=== PATIENT | male | born 1955 | race African-American/Black ===

== ENCOUNTER 2020-11-11 20:37 | Inpatient (IN) | payer OTHER ==
[2020-11-11 20:59] VITALS: BMI 42.0
[2020-11-11] MEDS ORDERED: ACETAMINOPHEN 1000 MG/100 ML VIAL IVPB ONE (21:38)
[2020-11-11] MEDS ORDERED: ACETAMINOPHEN INJECTION 100 ML IVPB ONE (21:40)
[2020-11-11] MEDS ORDERED: VANCOMYCIN/WATER 1,250 MG/250 ML BAG IVPB ONE (21:59)
[2020-11-11] MEDS ORDERED: CEFTRIAXONE 2,000 MG in DEXTROSE 5%-WATER - 50 ML IVPB ONE (21:59)
[2020-11-11] MEDS ORDERED: CEFTRIAXONE 2 GM/100 ML BAG IVPB ONE (22:16)
[2020-11-11 22:29] LABS: HEMATOCRIT 37.4 % (35.4-49); HEMOGLOBIN 12.6 GM/dL (11.7-16.9); MCHC 33.7 g/dl (32.0-35.9); MEAN CELL VOLUME 86.1 fl (80-96); MEAN PLT VOLUME 10.3 fl (7.5-11.1); PLATELET COUNT 184 10^3/uL (134-434); RBC 4.34 M/mm3 (4.00-5.60); RDW 13.5 % (11.9-15.9)
[2020-11-11 22:32] LABS: VENOUS BASE EXCESS 4.3 mmol/L (-2-2); VENOUS O2 SATURATION 49.6 % (70-80); VENOUS PCO2 43.6 mmHg (38-52); VENOUS PH 7.441 (7.310-7.410)
[2020-11-11 22:35] LABS: INR 1.39 (0.83-1.09); PROTHROMBIN TIME (PATIENT) 17.1 SEC (9.7-13.0)
[2020-11-11 22:36] LABS: LACTIC ACID 2.2 mmol/L (0.4-2.0)
[2020-11-11 22:37] LABS: ACTIVATED PTT 29.8 SECONDS (25.2-36.5)
[2020-11-11 22:45] LABS: CHLORIDE 90 mmol/L (98-107); SODIUM 129 mmol/L (136-145)
[2020-11-11 22:47] LABS: CALCIUM 8.2 mg/dL (8.5-10.1)
[2020-11-11 22:48] LABS: ALBUMIN 2.9 g/dl (3.4-5.0); ANION GAP 12 MMOL/L (8-16); BLOOD UREA NITROGEN 9.9 mg/dL (7-18); CO2 27 mmol/L (21-32); GLUCOSE,RANDOM 241 mg/dL (74-106)
[2020-11-11 22:51] LABS: CREATININE 1.5 mg/dL (0.55-1.3); SGOT/AST 50 U/L (15-37); SGPT/ALT 35 U/L (13-61)
[2020-11-11 22:52] LABS: BILIRUBIN,TOTAL 0.7 mg/dL (0.2-1)
[2020-11-11 22:53] LABS: TOT PROT 6.7 g/dl (6.4-8.2)
[2020-11-11 22:54] LABS: ALK PHOS 79 U/L (45-117)
[2020-11-11] MEDS ORDERED: LACTATED RINGERS SOLUTION 1000 ML INFUS.BAG IV ONE (23:01)
[2020-11-11 23:25] LABS: MAGNESIUM 1.7 mg/dL (1.8-2.4)
[2020-11-11 23:33] LABS: ANISOCYTOSIS 0; MACROCYTOSIS 0; PLATELET ESTIMATE NORMAL
[2020-11-12] MEDS ORDERED: POTASSIUM CHLORIDE TABS 20 MEQ TABLET.ER (FP) PO ONE ×2 (00:31→00:37)
[2020-11-12] MEDS: KCL 10 MEQ IVPB 10 MEQ/100 ML INFUS.BAG IVPB SCH ×2 (01:25→02:36)
[2020-11-12 02:06] LABS: EPI CELLS 2 /uL (0-25.1); HYALINE CASTS 0 /uL (0-3.1); PH,URINE 6.5 (5.0-8.0); URINE APPEARANCE CLEAR; URINE BACTERIA 1 /uL (0-1359); URINE BILIRUBIN NEGATIVE (NEGATIVE); URINE COLOR YELLOW; URINE GLUCOSE (UA) NEGATIVE (NEGATIVE); URINE KETONE NEGATIVE (NEGATIVE); URINE LEUK ESTERASE NEGATIVE (NEGATIVE); URINE NITRITE NEGATIVE (NEGATIVE); URINE PROTEIN 1+ (NEGATIVE); URINE RBC 11 /uL (0-23.9); URINE WBC 2 /uL (0-25.8)
[2020-11-12] MEDS ORDERED: MAGNESIUM SULF 50% (8.12 MEQ/2 ML-1 GM VIAL) IVPB ONE (03:25)
[2020-11-12] MEDS ORDERED: ALBUTEROL SO4 0.083% IH SOL 2.5 MG/3 ML VIAL.NEB. NEB PRN (03:26)
[2020-11-12] MEDS ORDERED: MAGNESIUM 1GM/D5W - 1 GM/100 ML IVPB IVPB ONE (03:35)
[2020-11-12] MEDS ORDERED: HEPARIN NA (PORCINE) 5,000 UNITS/ML 1ML VIAL SQ SCH (06:00)
[2020-11-12 06:14] LABS: HEMATOCRIT 37.1 % (35.4-49); HEMOGLOBIN 12.7 GM/dL (11.7-16.9); MCH 29.4 pg (25.7-33.7); MCHC 34.4 g/dl (32.0-35.9); MEAN CELL VOLUME 85.5 fl (80-96); MEAN PLT VOLUME 10.2 fl (7.5-11.1); PLATELET COUNT 181 10^3/uL (134-434); RBC 4.33 M/mm3 (4.00-5.60); RDW 13.3 % (11.9-15.9); WHITE BLOOD COUNT 15.2 K/mm3 (4.0-10.0)
[2020-11-12] MEDS: SODIUM CHLORIDE 1,000 ML IV SCH (06:46)
[2020-11-12] MEDS ORDERED: HEPARIN NA (PORCINE) 5,000 UNITS/ML 1ML VIAL ONE (06:48)
[2020-11-12 07:50] LABS: ALBUMIN 2.4 g/dl (3.4-5.0); BILIRUBIN,TOTAL 0.5 mg/dL (0.2-1); BLOOD UREA NITROGEN 9.8 mg/dL (7-18); CALCIUM 7.7 mg/dL (8.5-10.1); CREATININE 1.3 mg/dL (0.55-1.3); MAGNESIUM 1.9 mg/dL (1.8-2.4); PHOSPHOROUS 1.4 mg/dL (2.5-4.9)
[2020-11-12] MEDS ORDERED: ACETAMINOPHEN 325 MG TABLET (FP) ONE (08:57)
[2020-11-12] MEDS ORDERED: AZITHROMYCIN IVPB 500 MG/250 ML BAG IVPB ONE (08:58)
[2020-11-12] MEDS: INSULIN SLIDING SCALE (NOVOLOG) 1 VIAL SQ SCH ×4 (09:05→21:30)
[2020-11-12] MEDS: ACETAMINOPHEN 325 MG TABLET (FP) PO PRN ×2 (09:05→23:59)
[2020-11-12] MEDS ORDERED: TAMSULOSIN HCL 0.4 MG CAP ONE (09:09)
[2020-11-12] MEDS ORDERED: CEFTRIAXONE 1 GM/50 ML BAG ONE (09:09)
[2020-11-12] MEDS ORDERED: NAPH,MB-DB/K PH,MBDB POWDER PACKET ONE ×2 (09:09→21:11)
[2020-11-12] MEDS ORDERED: APIXABAN 5 MG TABLET ONE ×2 (09:09→21:10)
[2020-11-12] MEDS: POTASSIUM CHLORIDE TABS 20 MEQ TABLET.ER (FP) PO SCH ×2 (09:10→13:32)
[2020-11-12] MEDS: TAMSULOSIN HCL 0.4 MG CAP PO SCH (09:26)
[2020-11-12] MEDS: CITALOPRAM HYDROBROMIDE 20 MG TABLET PO SCH (09:26)
[2020-11-12] MEDS: CEFTRIAXONE 1 GM in DEXTROSE 5%-WATER - 50 ML IVPB SCH (09:26)
[2020-11-12] MEDS: NAPH,MB-DB/K PH,MBDB POWDER PACKET PO SCH ×2 (09:26→21:30)
[2020-11-12] MEDS: APIXABAN 5 MG TABLET PO SCH ×2 (09:26→21:30)
[2020-11-12] MEDS: AZITHROMYCIN IVPB 500 MG/250 ML BAG IVPB SCH (10:25)
[2020-11-12] MEDS ORDERED: POTASSIUM CHLORIDE TABS 10 MEQ TABLET.ER (FP) ONE (13:30)
[2020-11-12 19:32] LABS: CALCIUM 7.9 mg/dL (8.5-10.1)
[2020-11-12 19:33] LABS: BLOOD UREA NITROGEN 9.2 mg/dL (7-18)
[2020-11-12 19:36] LABS: CREATININE 1.2 mg/dL (0.55-1.3)
[2020-11-13] MEDS: SODIUM CHLORIDE 1,000 ML IV SCH (03:00)
[2020-11-13] MEDS: ACETAMINOPHEN 325 MG TABLET (FP) PO PRN ×3 (06:18→21:23)
[2020-11-13] MEDS: INSULIN SLIDING SCALE (NOVOLOG) 1 VIAL SQ SCH ×4 (06:18→21:17)
[2020-11-13] MEDS ORDERED: DEXTROSE 5%-WATER - 50 ML IVPB ONE (09:34)
[2020-11-13] MEDS ORDERED: cefTRIAXone SODIUM 1 GM VIAL ONE (09:34)
[2020-11-13] MEDS: TAMSULOSIN HCL 0.4 MG CAP PO SCH (09:45)
[2020-11-13] MEDS: APIXABAN 5 MG TABLET PO SCH ×2 (09:45→21:17)
[2020-11-13] MEDS: CITALOPRAM HYDROBROMIDE 20 MG TABLET PO SCH (09:45)
[2020-11-13] MEDS: CEFTRIAXONE 1 GM in DEXTROSE 5%-WATER - 50 ML IVPB SCH (09:45)
[2020-11-13] MEDS: AZITHROMYCIN IVPB 500 MG/250 ML BAG IVPB SCH (09:45)
[2020-11-13] MEDS: ALBUTEROL SO4 2.5/IPRATROPIUM 0.5 INH SOL 3 ML VIAL.NEB. NEB SCH ×3 (13:45→20:20)
[2020-11-13] MEDS ORDERED: PT OWN MED DRAWER 7, Y5N ONE (18:41)
[2020-11-14] MEDS: INSULIN SLIDING SCALE (NOVOLOG) 1 VIAL SQ SCH ×4 (06:33→22:03)
[2020-11-14] MEDS: SODIUM CHLORIDE 1,000 ML IV SCH (06:36)
[2020-11-14] MEDS: ALBUTEROL SO4 2.5/IPRATROPIUM 0.5 INH SOL 3 ML VIAL.NEB. NEB SCH ×4 (07:54→20:19)
[2020-11-14 07:56] LABS: BASO % 0.4 % (0-2.0); EOS % 0.4 % (0-4.5); HEMATOCRIT 36.6 % (35.4-49); HEMOGLOBIN 12.5 GM/dL (11.7-16.9); LYMPH % 8.4 % (8-40); MCH 29.5 pg (25.7-33.7); MCHC 34.2 g/dl (32.0-35.9); MEAN CELL VOLUME 86.2 fl (80-96); MONO % 11.3 % (3.8-10.2); NEUT % 79.5 % (42.8-82.8); PLATELET COUNT 195 10^3/uL (134-434); RBC 4.24 M/mm3 (4.00-5.60); RDW 13.3 % (11.9-15.9); WHITE BLOOD COUNT 10.8 K/mm3 (4.0-10.0)
[2020-11-14 08:15] LABS: ALBUMIN 2.3 g/dl (3.4-5.0); BLOOD UREA NITROGEN 8.4 mg/dL (7-18); MAGNESIUM 2.5 mg/dL (1.8-2.4)
[2020-11-14 08:20] LABS: BILIRUBIN,TOTAL 0.5 mg/dL (0.2-1); PHOSPHOROUS 2.3 mg/dL (2.5-4.9); TOT PROT 6.1 g/dl (6.4-8.2)
[2020-11-14] MEDS ORDERED: POTASSIUM CHLORIDE TABS 20 MEQ TABLET.ER (FP) PO ONE (08:54)
[2020-11-14] MEDS: TAMSULOSIN HCL 0.4 MG CAP PO SCH (09:24)
[2020-11-14] MEDS: ACETAMINOPHEN 325 MG TABLET (FP) PO PRN ×2 (09:25→15:34)
[2020-11-14] MEDS: APIXABAN 5 MG TABLET PO SCH ×2 (09:25→21:38)
[2020-11-14] MEDS: POTASSIUM CHLORIDE TABS 20 MEQ TABLET.ER (FP) PO SCH ×2 (09:25→14:38)
[2020-11-14] MEDS ORDERED: NAPH,MB-DB/K PH,MBDB POWDER PACKET PO ONE (09:30)
[2020-11-14 11:03] LABS: HIV INTERPRETATION NEGATIVE (NEGATIVE)
[2020-11-14] MEDS: LIDOCAINE 5% TOPICAL PATCH TP SCH (11:30)
[2020-11-14] MEDS: traMADol HCL 50 MG TABLET PO PRN (11:31)
[2020-11-14] MEDS ORDERED: SODIUM CHLORIDE 1,000 ML with POTASSIUM CHLORIDE 20 MEQ IV SCH (14:15)
[2020-11-14] MEDS: SODIUM CHLORIDE 0.9%/KCL 20 MEQ/1,000 ML INFUS.BAG IV SCH (14:36)
[2020-11-14] MEDS: GABAPENTIN 100 MG CAPSULE PO SCH ×2 (14:37→21:38)
[2020-11-14] MEDS: LIDOCAINE PATCH REMOVAL MC SCH (21:45)
[2020-11-15] MEDS: SODIUM CHLORIDE 0.9%/KCL 20 MEQ/1,000 ML INFUS.BAG IV SCH ×2 (05:56→13:27)
[2020-11-15] MEDS: GABAPENTIN 100 MG CAPSULE PO SCH ×3 (06:12→21:44)
[2020-11-15] MEDS: INSULIN SLIDING SCALE (NOVOLOG) 1 VIAL SQ SCH ×4 (06:13→21:47)
[2020-11-15] MEDS: ALBUTEROL SO4 2.5/IPRATROPIUM 0.5 INH SOL 3 ML VIAL.NEB. NEB SCH ×4 (08:22→20:30)
[2020-11-15] MEDS: traMADol HCL 50 MG TABLET PO PRN (09:16)
[2020-11-15] MEDS: APIXABAN 5 MG TABLET PO SCH ×3 (09:16→22:00)
[2020-11-15] MEDS: TAMSULOSIN HCL 0.4 MG CAP PO SCH (09:17)
[2020-11-15] MEDS: LIDOCAINE 5% TOPICAL PATCH TP SCH (09:17)
[2020-11-15] MEDS ORDERED: ALTEPLASE (CATHFLO) 2 MG/2 ML VIAL IX ONE ×2 (09:45→10:10)
[2020-11-15] MEDS: LIDOCAINE PATCH REMOVAL MC SCH (21:44)
[2020-11-16] MEDS: GABAPENTIN 100 MG CAPSULE PO SCH ×3 (06:11→22:09)
[2020-11-16] MEDS: INSULIN SLIDING SCALE (NOVOLOG) 1 VIAL SQ SCH ×4 (07:04→22:10)
[2020-11-16 08:08] LABS: HEMATOCRIT 35.6 % (35.4-49); HEMOGLOBIN 11.9 GM/dL (11.7-16.9); MCHC 33.5 g/dl (32.0-35.9); MEAN CELL VOLUME 86.6 fl (80-96); MEAN PLT VOLUME 10.2 fl (7.5-11.1); PLATELET COUNT 267 10^3/uL (134-434); RBC 4.12 M/mm3 (4.00-5.60); RDW 14.2 % (11.9-15.9); WHITE BLOOD COUNT 11.6 K/mm3 (4.0-10.0)
[2020-11-16] MEDS: ALBUTEROL SO4 2.5/IPRATROPIUM 0.5 INH SOL 3 ML VIAL.NEB. NEB SCH ×4 (08:10→20:38)
[2020-11-16 08:36] LABS: ALBUMIN 2.1 g/dl (3.4-5.0); BLOOD UREA NITROGEN 6.2 mg/dL (7-18); MAGNESIUM 2.6 mg/dL (1.8-2.4)
[2020-11-16 08:39] LABS: CREATININE 0.9 mg/dL (0.55-1.3)
[2020-11-16 08:41] LABS: BILIRUBIN,TOTAL 0.5 mg/dL (0.2-1); TOT PROT 5.9 g/dl (6.4-8.2)
[2020-11-16 09:14] LABS: ANISOCYTOSIS 2+; MACROCYTOSIS 0; PLATELET ESTIMATE NORMAL
[2020-11-16 09:30] LABS: PHOSPHOROUS 3.1 mg/dL (2.5-4.9)
[2020-11-16] MEDS: TAMSULOSIN HCL 0.4 MG CAP PO SCH (10:01)
[2020-11-16] MEDS: APIXABAN 5 MG TABLET PO SCH ×2 (10:01→22:07)
[2020-11-16] MEDS: LIDOCAINE 5% TOPICAL PATCH TP SCH (10:01)
[2020-11-16] MEDS ORDERED: PT OWN MED DRAWER 7, Y5N ONE (12:47)
[2020-11-16] MEDS: SODIUM CHLORIDE 0.9%/KCL 20 MEQ/1,000 ML INFUS.BAG IV SCH (15:20)
[2020-11-16] MEDS: LIDOCAINE PATCH REMOVAL MC SCH (22:10)
[2020-11-17] MEDS: GABAPENTIN 100 MG CAPSULE PO SCH ×3 (06:22→21:34)
[2020-11-17] MEDS: INSULIN SLIDING SCALE (NOVOLOG) 1 VIAL SQ SCH ×4 (06:22→21:26)
[2020-11-17 07:19] LABS: HEMATOCRIT 35.5 % (35.4-49); HEMOGLOBIN 12.1 GM/dL (11.7-16.9); MCH 29.6 pg (25.7-33.7); MCHC 34.1 g/dl (32.0-35.9); MEAN CELL VOLUME 86.6 fl (80-96); MEAN PLT VOLUME 9.5 fl (7.5-11.1); PLATELET COUNT 334 10^3/uL (134-434); RDW 14.1 % (11.9-15.9); WHITE BLOOD COUNT 10.7 K/mm3 (4.0-10.0)
[2020-11-17] MEDS: ALBUTEROL SO4 2.5/IPRATROPIUM 0.5 INH SOL 3 ML VIAL.NEB. NEB SCH ×4 (07:34→20:15)
[2020-11-17 07:35] LABS: CALCIUM 8.4 mg/dL (8.5-10.1)
[2020-11-17 07:36] LABS: ALBUMIN 2.1 g/dl (3.4-5.0); BLOOD UREA NITROGEN 10.5 mg/dL (7-18); MAGNESIUM 2.4 mg/dL (1.8-2.4)
[2020-11-17 07:40] LABS: BILIRUBIN,TOTAL 0.6 mg/dL (0.2-1)
[2020-11-17 07:41] LABS: TOT PROT 6.1 g/dl (6.4-8.2)
[2020-11-17 09:15] LABS: ANISOCYTOSIS 0; MACROCYTOSIS 0; PLATELET ESTIMATE NORMAL
[2020-11-17] MEDS: LIDOCAINE 5% TOPICAL PATCH TP SCH (10:41)
[2020-11-17] MEDS: MULTIVITAMINS THER W-MINERALS COMBO TABLET (FP) PO SCH (10:41)
[2020-11-17] MEDS: APIXABAN 5 MG TABLET PO SCH ×2 (10:41→21:34)
[2020-11-17] MEDS: TAMSULOSIN HCL 0.4 MG CAP PO SCH (10:41)
[2020-11-17] MEDS: LIDOCAINE PATCH REMOVAL MC SCH (21:35)
[2020-11-18] MEDS: GABAPENTIN 100 MG CAPSULE PO SCH ×3 (06:44→21:33)
[2020-11-18] MEDS: INSULIN SLIDING SCALE (NOVOLOG) 1 VIAL SQ SCH ×4 (06:45→21:34)
[2020-11-18] MEDS: ALBUTEROL SO4 2.5/IPRATROPIUM 0.5 INH SOL 3 ML VIAL.NEB. NEB SCH ×4 (07:40→20:00)
[2020-11-18 08:40] LABS: HEMATOCRIT 35.7 % (35.4-49); MCH 29.4 pg (25.7-33.7); MCHC 33.7 g/dl (32.0-35.9); MEAN CELL VOLUME 87.2 fl (80-96); MEAN PLT VOLUME 9.7 fl (7.5-11.1); PLATELET COUNT 391 10^3/uL (134-434); WHITE BLOOD COUNT 10.4 K/mm3 (4.0-10.0)
[2020-11-18 08:58] LABS: CALCIUM 8.5 mg/dL (8.5-10.1)
[2020-11-18 08:59] LABS: ALBUMIN 2.2 g/dl (3.4-5.0); BLOOD UREA NITROGEN 10.5 mg/dL (7-18); MAGNESIUM 2.3 mg/dL (1.8-2.4)
[2020-11-18 09:03] LABS: BILIRUBIN,TOTAL 0.3 mg/dL (0.2-1)
[2020-11-18 09:04] LABS: TOT PROT 6.2 g/dl (6.4-8.2)
[2020-11-18] MEDS: APIXABAN 5 MG TABLET PO SCH ×2 (10:31→21:33)
[2020-11-18] MEDS: MULTIVITAMINS THER W-MINERALS COMBO TABLET (FP) PO SCH (10:31)
[2020-11-18] MEDS: TAMSULOSIN HCL 0.4 MG CAP PO SCH (10:31)
[2020-11-18] MEDS: LIDOCAINE 5% TOPICAL PATCH TP SCH (10:32)
[2020-11-18 11:07] LABS: ANISOCYTOSIS 0; MACROCYTOSIS 0; PLATELET ESTIMATE NORMAL
[2020-11-18] MEDS: LIDOCAINE PATCH REMOVAL MC SCH (21:34)
[2020-11-19] MEDS: GABAPENTIN 100 MG CAPSULE PO SCH ×2 (06:36→15:18)
[2020-11-19] MEDS: INSULIN SLIDING SCALE (NOVOLOG) 1 VIAL SQ SCH ×2 (06:36→13:25)
[2020-11-19] MEDS ORDERED: INSULIN (NOVOLOG) ASPART 100 UNITS/ML 10ML VIAL ONE (06:52)
[2020-11-19] MEDS ORDERED: LISINOPRIL 5 MG TABLET PO SCH (07:00)
[2020-11-19] MEDS: ALBUTEROL SO4 2.5/IPRATROPIUM 0.5 INH SOL 3 ML VIAL.NEB. NEB SCH ×3 (07:40→15:05)
[2020-11-19 08:07] LABS: BASO % 1.1 % (0-2.0); EOS % 3.1 % (0-4.5); HEMATOCRIT 36.9 % (35.4-49); HEMOGLOBIN 12.1 GM/dL (11.7-16.9); LYMPH % 16.3 % (8-40); MCH 28.6 pg (25.7-33.7); MCHC 32.9 g/dl (32.0-35.9); MEAN CELL VOLUME 86.9 fl (80-96); MONO % 8.4 % (3.8-10.2); NEUT % 71.1 % (42.8-82.8); PLATELET COUNT 418 10^3/uL (134-434); RBC 4.25 M/mm3 (4.00-5.60); RDW 14.3 % (11.9-15.9); WHITE BLOOD COUNT 11.5 K/mm3 (4.0-10.0)
[2020-11-19 08:49] LABS: CALCIUM 8.7 mg/dL (8.5-10.1)
[2020-11-19 08:50] LABS: ALBUMIN 2.3 g/dl (3.4-5.0); BLOOD UREA NITROGEN 11.5 mg/dL (7-18)
[2020-11-19 08:53] LABS: CREATININE 1.1 mg/dL (0.55-1.3)
[2020-11-19 08:55] LABS: TOT PROT 6.5 g/dl (6.4-8.2)
[2020-11-19 08:56] LABS: BILIRUBIN,TOTAL 0.4 mg/dL (0.2-1)
[2020-11-19] MEDS: LIDOCAINE 5% TOPICAL PATCH TP SCH (10:19)
[2020-11-19] MEDS: TAMSULOSIN HCL 0.4 MG CAP PO SCH (10:20)
[2020-11-19] MEDS: MULTIVITAMINS THER W-MINERALS COMBO TABLET (FP) PO SCH (10:20)
[2020-11-19] MEDS: APIXABAN 5 MG TABLET PO SCH (10:20)
[2020-11-19] MEDS ORDERED: DOXYCYCLINE HYCLATE 100 MG CAPSULE PO ONE (13:30)
[2020-11-19 15:43] VITALS: BP 143/79; PULSE 92; TEMP 98.2
[2020-11-19] MEDS ORDERED: DOXYCYCLINE HYCLATE 100 MG CAPSULE PO SCH (18:00)
== END 2020-11-19 16:56 | disposition home or self-care (01) | DRG 137 ==
LOC: JER 20:37 → JERBED 11-12 00:10 → J4W 11-12 23:26
PROVIDERS: ADMIT Internal Medicine; ATTEND Nurse Practitioner Family
DX: A48.1 Legionnaires' disease (principal); J96.01 Acute respiratory failure with hypoxia; E87.2 Acidosis; M62.82 Rhabdomyolysis; N17.9 Acute kidney failure, unspecified; E83.42 Hypomagnesemia; E87.1 Hypo-osmolality and hyponatremia; E87.6 Hypokalemia; E11.9 Type 2 diabetes mellitus without complications; J98.11 Atelectasis; M54.5 Low back pain; I10 Essential (primary) hypertension; G93.89 Other specified disorders of brain; Z79.84 Long term (current) use of oral hypoglycemic drugs; E66.01 Morbid (severe) obesity due to excess calories; Z68.41 Body mass index [BMI] 40.0-44.9, adult; Z59.0 Homelessness
CPT/HCPCS: 36415; 70450-TC; 71045-TC-FY; 71250-TC; 80048; 80053; 81003; 82436; 82550; 82553; 82803; 82962; 83036; 83605; 83735; 83880; 83935; 84100; 84133; 84300; 84443; 84484; 85025; 85027; 85610; 85730; 86713; 86738; 87040; 87070; 87081; 87086; 87205; 87389; 87804; 87899; 93005; 93010; 93306-TC; 93970-TC; 94010; 94640; 97116-GP; 97162-GP; 99285-25; C9803; J0131; J1644; U0003; U0005

== ENCOUNTER 2021-02-18 10:19 | Emergency (ER) | payer OTHER ==
[2021-02-18 11:25] VITALS: TEMP 97.1; BMI 39.0
[2021-02-18 13:19] VITALS: BP 119/81; PULSE 96
== END 2021-02-18 13:10 | disposition home or self-care (01) ==
LOC: JER 10:19
DX: S09.90XA Unspecified injury of head, initial encounter (principal); S00.03XA Contusion of scalp, initial encounter; W01.0XXA Fall on same level from slipping, tripping and stumbling without subsequent striking against object, initial encounter
CPT/HCPCS: 70450-TC; 99284-25